=== PATIENT | male | born 1980 | race Caucasian/White ===

== ENCOUNTER 2018-02-20 22:34 | Emergency (ER) | payer BC ==
[2018-02-20 22:57] VITALS: TEMP 98.3
--- NOTE | 2018-02-20 23:23 | ED ---
General Adult HPI - General Chief complaint: Back Pain/Injury Stated complaint: back pain Time Seen by Provider: 02/20/18 22:58 Source: patient Mode of arrival: ambulatory Limitations: no limitations - History of Present Illness Initial comments: 37yo male with PMH of depression presenting today for cc of right sided low back pain x 2 weeks. Pt states that 2 weeks ago he was walking and noted pain in the mid buttock to the lower right side of his back. Pt thought he strained his back. He denies recent history of fall or trauma to hip/back. Describes it as a sharp shooting pain that does not occur at rest. Pt states that the pain is worse when weight bearing, leaning forward and ambulating. Pt denies muscle weakness, numbness, tingling, loss sensation, urinary retention, loss of bowel bladder control, IV drug use, history of cancer, hematuria, dysuria, urgency, frequency, testicular pain,abdominal pain. Remainder of ROS (-). Upon arrival pt afebrile, VS within acceptable limits. - Related Data Home Medications Medication Instructions Recorded Confirmed No Known Home Medications 02/20/18 02/20/18 Allergies Allergy/AdvReac Type Severity Reaction Status Date / Time No Known Allergies Allergy Verified 02/20/18 23:12 Review of Systems ROS Statement: Those systems with pertinent positive or pertinent negative responses have been documented in the HPI. ROS Other: All systems not noted in ROS Statement are negative. Constitutional: Denies: fever, chills, night sweats ENT: Denies: ear pain, throat pain Respiratory: Denies: cough, dyspnea, wheezes, hemoptysis, stridor Cardiovascular: Denies: chest pain, palpitations Endocrine: Denies: fatigue Gastrointestinal: Denies: abdominal pain, nausea, vomiting, diarrhea, constipation Genitourinary: Denies: urgency, dysuria, frequency, hematuria, discharge Musculoskeletal: Reports: as per HPI, back pain Skin: Denies: rash, lesions Neurological: Denies: headache, numbness, paresthesias, confusion, abnormal gait Past Medical History Past Medical History: Seizure Disorder Additional Past Medical History / Comment(s): pt states tried hanging himself last year. hx of depression. History of daily alcohol drinking for the last 2 years, he was drinking less previous to that, suicidal threats only when drunk per significant other & patient. History of Any Multi-Drug Resistant Organisms: None Reported Past Surgical History: No Surgical Hx Reported Past Anesthesia/Blood Transfusion Reactions: No Reported Reaction Past Psychological History: Anxiety, Bipolar, Depression Smoking Status: Current every day smoker Past Alcohol Use History: Heavy Past Drug Use History: Marijuana - Past Family History Father Family Medical History: Congestive Heart Failure (CHF) General Exam - General Exam Comments Initial Comments: General: The patient is awake and alert, in no distress, and does not appear acutely ill. Eye: Pupils are equal, round and reactive to light, extra-ocular movements are intact. No nystagmus. There is normal conjunctiva bilaterally. No signs of icterus. Ears, nose, mouth and throat: There are moist mucous membranes and no oral lesions. Neck: The neck is supple, there is no tenderness or JVD. Cardiovascular: There is a regular rate and rhythm. No murmur, rub or gallop is appreciated. Respiratory: Lungs are clear to auscultation, respirations are non-labored, breath sounds are equal. No wheezes, stridor, rales, or rhonchi. Musculoskeletal: No noted rashes, erythema, lesions upon inspection of the lumbar spine Pt is able to fully range at the hips/LE equally b/l. Normal ROM at the lumbar spine with flexion, extension, rotation and lateral flexion. Pain to deep palpation of the right superior glute. Strength 5/5 LE equally b/l. No midline or paravertebral tenderness to palpation of the lumbar spine. Sensation intact of the LE including inner thigh. DP pulses equal bilaterally 2+ . +2/5 DTR no noted myoclonus. Neurological: A&O x 3. CN II-XII intact, There are no obvious motor or sensory deficits. Coordination appears grossly intact. Speech is normal. Skin: Skin is warm and dry and no rashes or lesions are noted. Psychiatric: Cooperative, appropriate mood & affect, normal judgment. Limitations: no limitations Course Vital Signs 02/20/18 22:53 Temperature 98.3 F Pulse Rate 81 Respiratory 20 Rate Blood Pressure 118/85 O2 Sat by Pulse 100 Oximetry Medical Decision Making - Medical Decision Making PE unremarkable. Pt neurovascular intact. Given location of symptoms XR of the hip obtained, revealing no acute fracture/dislocation/AVN. Pt symptoms and area of point localizations appear to be consistent with a possible piriformis syndrome. Pt did state he often is getting in and out of his car which increases the pain. I do not feel the pain is associated from lumbar disease, no midline or paravertebral tenderness or history of fall. Pt was given instruction to use ibuprofen and tylenol for pain as well as a note for 2 days off work to rest, ice area. In addition pt was given orthopedic referral for further evaluation. Pt agreed with plan, denied questions at this time. Case discussed with Dr. Alves prior to d/c who agreed with impression and plan. Pt discharged in stable condition. Disposition Clinical Impression: Muscle strain, Sciatica Disposition: HOME SELF-CARE Condition: Good Additional Instructions: Please use medication as discussed. Please follow-up with family doctor in the next 2 days. Please follow-up with orthopedic surgery in the next week if symptoms persist. Please return to emergency room if the symptoms increase or worsen or for any other concerns. Is patient prescribed a controlled substance at d/c from ED?: No Referrals: None,Stated [Primary Care Provider] - 1-2 days Wilfrido Yu DO [Doctor of Osteopathic Medicine] - 1-2 days Time of Disposition: 23:33
--- NOTE | 2018-02-21 00:18 | XR ---
EXAMINATION TYPE: XR Hip Complete LT DATE OF EXAM: 02/20/2018 COMPARISON: NONE HISTORY: Hip pain TECHNIQUE: 2 views FINDINGS: I see no fracture nor dislocation. Hip joint space is normal. Sacroiliac joint appears norm al. IMPRESSION: Normal left hip
[2018-02-21 00:25] VITALS: BP 134/81; PULSE 75; RESP 18
== END 2018-02-21 00:26 | disposition home or self-care (01) ==
LOC: EC 22:34
DX: S39.012A Strain of muscle, fascia and tendon of lower back, initial encounter (principal); M54.40 Lumbago with sciatica, unspecified side; F17.200 Nicotine dependence, unspecified, uncomplicated; X50.1XXA Overexertion from prolonged static or awkward postures, initial encounter; Y93.01 Activity, walking, marching and hiking
CPT/HCPCS: 73502; 99283